=== PATIENT | male | born 1960 | race Caucasian/White ===

== ENCOUNTER 2024-05-28 14:00 | Emergency (ER) | payer MEDICAID ==
[~2024-05-28] VITALS: Ht 170.2 cm; Wt 65.7 kg
[2024-05-28 14:02] VITALS: BP 139/88; PULSE 89; RESP 16; O2SAT 95
[2024-05-28] MEDS ORDERED: NICO-687 TOP (14:30)
[2024-05-28 14:35] VITALS: TEMP 99
== END 2024-05-28 14:36 | disposition home or self-care (01) ==
LOC: ER 14:01
DX: F10.129 Alcohol abuse with intoxication, unspecified (principal); Y90.9 Presence of alcohol in blood, level not specified
CPT/HCPCS: 99282